=== PATIENT | female | born 2000 | race Two or more races ===

== ENCOUNTER 2024-12-26 04:51 | Emergency (ER) | payer MEDICAID ==
[~2024-12-26] VITALS: Ht 149.9 cm; Wt 49.0 kg
[2024-12-26 05:10] VITALS: TEMP 98.6
[2024-12-26] MEDS ORDERED: PANTOPRAZOLE 40 MG VIAL ONE (05:29)
[2024-12-26] MEDS ORDERED: ONDANSETRON HCL/PF 4 MG/2 ML VIAL ONE (05:29)
[2024-12-26] MEDS: IV NS 0.9% 1,000 ML BAG IV ONE (05:40)
[2024-12-26] MEDS: ONDANSETRON HCL/PF 4 MG/2 ML VIAL IVP ONE (05:40)
[2024-12-26] MEDS: PANTOPRAZOLE 40 MG VIAL IV ONE (05:40)
[2024-12-26 05:44] VITALS: BP 110/72; O2SAT 97
[2024-12-26 05:45] LABS: PLATELET COUNT (AUTO) 398 K/uL (150-450); RED BLOOD CELL COUNT(AUTO) 4.49 MIL/uL (4.0-5.2); RED CELL DISTRIBUTION WIDTH 12.7 % (11.5-15.0); WHITE BLOOD COUNT (AUTO) 8.5 K/uL (4.3-11.0)
[2024-12-26 05:52] LABS: CALCIUM, SERUM 8.8 mg/dL (8.5-10.1); CREATININE 0.7 mg/dL (0.6-1.3); SODIUM SERUM 143.0 mmol/L (136-145); UREA NITROGEN, BLOOD 9.0 mg/dL (7-18)
[2024-12-26 05:59] LABS: ASPARTATE AMINOTRANSFERASE 19.0 U/L (15-37); TOTAL PROTEIN, SERUM 8.2 g/dL (6.4-8.2)
== END 2024-12-26 07:34 | disposition home or self-care (01) ==
LOC: ER 04:57
DX: R11.2 Nausea with vomiting, unspecified (principal); F10.90 Alcohol use, unspecified, uncomplicated; Y90.0 Blood alcohol level of less than 20 mg/100 ml
CPT/HCPCS: 99284; 96374; 96361; 96375; 85025; 80048; 83690; 80076; 36415; 80320; J2405; J2470; G0480